=== PATIENT | female | born 1990 ===

== ENCOUNTER → 2021-08-13 17:54 | Outpatient (CLI) | payer OTHER, SELFPAY ==
--- NOTE | 2021-08-13 | DI.MRI.S_ITS ---
PROCEDURE: MR FOOT RT WO CON INDICATIONS: Pain in right foot TECHNIQUE: Noncontrast sagittal T1 spin echo and T2 fast spin echo with fat saturation, long-axis T1 spin echo and T2 fast spin echo with fat saturation, short-axis T1 spin echo and T2 fast spin echo with fat saturation through the forefoot. COMPARISON: None. FINDINGS: Image quality: Excellent. Bones and joints: There is edema within the medial hallux sesamoid. No discrete fracture line is seen. Subtle edema is also seen within the lateral hallux sesamoid. Relatively mild metatarsal sesamoid degenerative changes are present. The sesamoid bones are normally aligned. The remaining osseous structures demonstrate normal signal intensity. No bone marrow contusions or metatarsal stress fractures. The sesamoid bones appear in expected positions, without internal edema. No metatarsophalangeal joint degeneration. No intraosseous lesions. Soft tissues: The visualized plantar foot muscles demonstrate normal signal and bulk. Visualized flexor and extensor tendons appear intact, without tenosynovitis. The distal insertions of the peroneus brevis and longus tendons appear intact. The principal Lisfranc ligament appears intact. No soft tissue ganglion cysts or bursal fluid collections. Sagittal images demonstrate no evidence for plantar plate tears. IMPRESSION: Osseous edema within the medial hallux sesamoid may be secondary to acute trabecular bone injury, chronic repetitive use, sesamoiditis, or less likely degenerative changes. No discrete fracture line is seen. There is also subtle mild edema within the lateral hallux sesamoid. Minimal metatarsosesamoid degenerative changes are seen. No associated tendon tear or plantar plate tear. Dictated by: Ryan Hdz M.D. on 08/16/2021 at 8:39 Approved by: Ryan Hdz M.D. on 08/16/2021 at 8:46
== END ==
PROVIDERS: Referring Provider Podiatrist; Visit Provider Podiatrist
DX: S92.901A Unspecified fracture of right foot, initial encounter for closed fracture (principal); M79.671 Pain in right foot
CPT/HCPCS: 73718